=== PATIENT | female | born 1990 | race Caucasian/White ===

== ENCOUNTER → 2018-12-11 | Outpatient (CLI) | payer OTHER ==
--- NOTE | 2018-12-11 20:22 | Diagnostic Imaging Report ---
INDICATION: Left breast pain as well as left nipple discharge. No prior studies are available for comparison. 2-D and 3-D bilateral diagnostic mammography was performed with Computer-Aided Detection (CAD) system. FINDINGS: Both breasts are heterogeneously dense, limiting the sensitivity of mammography. No mass or suspicious calcifications are seen. The axillae are unremarkable. IMPRESSION: No mammographic features suspicious for malignancy are identified. Even so, sonographic interrogation of the area of pain in the left breast as well as the retroareolar left breast is recommended and will be performed today. ACR BI-RADS Category 0: Incomplete. (Needs additional imaging evaluation). Result letter will be mailed to the patient. Note: At least 10% of breast cancer is not imaged by mammography. Dictated by: Dictated on workstation # [id number]
--- NOTE | 2018-12-11 20:24 | Diagnostic Imaging Report ---
INDICATION: Left breast pain and left nipple discharge. Correlation is made with diagnostic study earlier same day. FINDINGS: Sonographic interrogation of the retroareolar left breast as well as the area of pain in the left breast in the outer portion was performed. No solid or cystic mass is identified. Minimally prominent ducts in the retroareolar left breast are noted. No intraductal mass is seen. IMPRESSION: No sonographic abnormality is identified. Clinical follow-up is recommended. ACR BI-RADS Category 2: Benign findings. Dictated by: Dictated on workstation # [id number]
== END ==
LOC: RAD 08:22
PROVIDERS: ATTEND Nurse Practitioner Primary Care
DX: N64.3 Galactorrhea not associated with childbirth (principal); N64.4 Mastodynia
CPT/HCPCS: 76642; 77066

== ENCOUNTER 2022-02-25 17:39 | Emergency (ER) | payer SELFPAY ==
[~2022-02-25] VITALS: Ht 170 cm; Wt 68.0 kg
[2022-02-25 18:01] LABS: BILIRUBIN,URINE NEGATIVE (NEGATIVE); CLARITY,URINE CLEAR; COLOR,URINE ORANGE; GLUCOSE, URINE (UA) TRACE (NEGATIVE); KETONES,URINE NEGATIVE (NEGATIVE); LEUKOCYTE ESTERASE ,URINE NEGATIVE (NEGATIVE); NITRITE,URINE POSITIVE (NEGATIVE); PH,URINE 7.5 (5-9); PROTEIN,URINE 1+ (NEGATIVE)
[2022-02-25 18:10] LABS: BACTERIA,URINE TRACE /HPF; SQUAMOUS EPITHELIAL CELL,UR RARE /HPF; WBC,URINE RARE /HPF
--- NOTE | 2022-02-25 18:14 | ED GU-Female ---
General Chief Complaint: - Reproductive Stated Complaint: BACK PAIN - FEVER - FREQUENT URINATION - CHILLS Source: patient Exam Limitations: no limitations History of Present Illness Date Seen by Provider: February 25, 2022 Time Seen by Provider: 17:54 Initial Comments The patient presents to the ER by private conveyance with chief complaint of a couple days of fever of 100.5, frequent urination, chills and back pain. She said she has a urinary tract infection. She has been using ibuprofen and Tylenol with her last dose 2 to 3 hours prior to arrival. She is not having any nausea. She has been drinking twice as much is normal. She has not been on any antibiotics recently. No discharge. She is not sexually active and her tubes are tied. Last menstrual period was February 04, approximately 3 weeks ago. Allergies and Home Medications Allergies Coded Allergies: No Known Drug Allergies (Unverified , 02/25/22) Patient Home Medication List Home Medication List Reviewed: Yes Review of Systems Review of Systems Constitutional: No chills, No diaphoresis EENTM: No ear discharge, No ear pain Respiratory: No cough, No short of breath Cardiovascular: No chest pain, No edema Gastrointestinal: No no symptoms reported, No abdominal pain Genitourinary: burning; denies discharge; dysuria : No Musculoskeletal: back pain; No joint pain All Other Systemes Reviewed Negative Unless Noted: Yes Past Ueruvxz-Gkpkna-Pdgbrh Hx Patient Social History Tobacco Use?: No Use of E-Cig and/or Vaping dev: No Substance use?: No Alcohol Use?: No Physical Exam Vital Signs Capillary Refill : Height, Weight, BMI Height: '" Weight: lbs. oz. kg; BMI Method: General Appearance: WD/WN, mild distress HEENT: pharynx normal Neck: non-tender, full range of motion, supple, normal inspection Cardiovascular: normal peripheral pulses, regular rate, rhythm, no edema Respiratory: no respiratory distress, no accessory muscle use Gastrointestinal: normal bowel sounds, non tender, soft Extremities: non-tender, normal capillary refill Neurologic/Psychiatric: alert, normal mood/affect, oriented x 3 Progress/Results/Core Measures Suspected Sepsis SIRS Temperature: Pulse: Respiratory Rate: Blood Pressure / Mean: Results/Orders Lab Results Laboratory Tests Test 02/25/22 17:50 Range/Units Urine Color ORANGE Urine Clarity CLEAR Urine pH 7.5 5-9 Urine Specific [place] 1.010 L 1.016-1.022 Urine Protein 1+ H NEGATIVE Urine Glucose (UA) TRACE H NEGATIVE Urine Ketones NEGATIVE NEGATIVE Urine Nitrite POSITIVE H NEGATIVE Urine Bilirubin NEGATIVE NEGATIVE Urine Urobilinogen 2.0 < = 1.0 MG/DL Urine Leukocyte Esterase NEGATIVE NEGATIVE Urine RBC (Auto) NEGATIVE NEGATIVE Urine RBC NONE /HPF Urine WBC RARE /HPF Urine Squamous Epithelial Cells RARE /HPF Urine Crystals NONE /LPF Urine Bacteria TRACE /HPF Urine Casts NONE /LPF Urine Mucus NEGATIVE /LPF Urine Culture Indicated YES My Orders Orders - PRIETO FELIX Ketorolac Injection (Toradol Injection) (02/25/22 18:15) Ceftriaxone (Rocephin) (02/25/22 18:30) Lidocaine 1% Inj 20 Ml (Xylocaine 1% Inj (02/25/22 18:30) Vital Signs/I&O Capillary Refill : Progress Note : Time: 18:18 Progress Note Suspect UTI. Urinalysis. She declined a bedside as her tubes are tied. We will give her Toradol for her discomfort and if this does not help we can try AZO. Rocephin if she has a urinary tract infection. We will get a CT scan if it looks like straight blood, more like a stone. She does not have a history of stone. Departure Impression Primary Impression: UTI (urinary tract infection) Qualified Codes: N30.00 - Acute cystitis without hematuria Disposition: 01 HOME, SELF-CARE Condition: Stable Departure-Patient Inst. Decision time for Depature: 18:22 Referrals: NO,LOCAL PHYSICIAN (PCP/Family) Primary Care Physician Patient Instructions: Urinary Tract Infection, Adult (DC) Add. Discharge Instructions: Drink a lot of water to help flush your kidneys out. set up mold technician the Keflex and take 500 mg twice a day for a week. Return to the ER for significantly worsening symptoms such as fever above 102.5, intractable vomiting, intractable pain. Continue to use 200 mg of Pyridium twice a day for 4 to 5 days as necessary to control pain with urination. Ibuprofen 800 mg every 8 hours as needed for fever or pain. Tylenol 1000 mg every 8 hours as needed for pain or fever. Follow-up with your primary care doctor if you are still having symptoms at the end of your antibiotics. All discharge instructions reviewed with patient and/or family. Voiced understanding. Scripts Cephalexin (Cephalexin) 500 Mg Tablet 500 MG PO BID for 7 Days, #14 TAB 0 Refills Prov: PRIETO FELIX 02/25/22 Work/School Note: Work Release Form Date Seen in the Emergency Department: February 25, 2022 Return to Work: February 27, 2022 Restrictions: No Restrictions PRIETO FELIX February 25, 2022 18:14
[2022-02-25] MEDS ORDERED: KETOROLAC 60 MG/2 ML VIAL IM ONE (18:15)
[2022-02-25] MEDS ORDERED: CEPH500T PO (18:24)
[2022-02-25] MEDS ORDERED: LIDOCAINE 1% INJ 20 ML VIAL INJ ONE (18:30)
[2022-02-25] MEDS ORDERED: cefTRIAXone 1,000 MG VIAL IM ONE (18:30)
[2022-02-25 18:44] VITALS: BP 127/79
== END 2022-02-25 18:42 | disposition home or self-care (01) ==
LOC: EDUNIT# 17:39 → ER 17:41
DX: N30.00 Acute cystitis without hematuria (principal)
CPT/HCPCS: 81000; 87088; 99284